=== PATIENT | male | born 1955 | race Caucasian/White ===

== ENCOUNTER → 2017-08-03 | Outpatient (CLI) | payer SELFPAY ==
[2017-08-03 10:26] LABS: Alanine Aminotransfer (ALT/SGP 27 U/L (12-78); Albumin, Blood 3.3 g/dL (3.4-5.0); Albumin/Globulin Ratio 0.8 (0.8-1.8); Alk Phos 92 U/L (40-126); Anion Gap 10 mmol/L (6-16); Aspartate Aminotrans (AST/SGOT 20 U/L (12-37); Bilirubin, Total 0.3 mg/dL (0.1-1.0); Blood Urea Nitrogen 22 mg/dL (8-24); Bun/Creatinine Ratio 18.5 (12.0-20.0); CO2, Blood 27 mmol/L (21-32); Calcium, Blood 8.7 mg/dL (8.5-10.1); Chloride, Blood 104 mmol/L (98-108); Creatinine, Blood 1.19 mg/dL (0.60-1.20); Globulin, Blood 4.2 g/dL (2.2-4.0); Glomerular Filtration Rate >60 (60-); Glucose, Blood 103 mg/dL (70-99); Potassium, Blood 3.5 mmol/L (3.5-5.5); Sodium, Blood 141 mmol/L (136-145); Total Protein, Blood 7.5 g/dL (6.4-8.2)
== END ==
LOC: LAB SHORT 10:07 → LAB EV 10:07
PROVIDERS: Family Medicine
DX: I10 Essential (primary) hypertension (principal)
CPT/HCPCS: 80053

== ENCOUNTER 2017-09-08 14:05 | Inpatient (IN) | payer SELFPAY ==
[~2017-09-08] VITALS: Ht 175.3 cm; Wt 105.0 kg
[2017-09-08] MEDS ORDERED: LISI20 PO ×2 (14:47)
[2017-09-08] MEDS ORDERED: CHLO25B PO ×2 (14:49)
[2017-09-08 19:16] LABS: Troponin I 0.174 ng/mL (0.000-0.040)
[2017-09-09 01:19] LABS: Source, Urine Clean Catch
[2017-09-09 01:22] LABS: Bilirubin, Urine Neg (Neg); Blood, Urine 1+ (Neg); Glucose Qualitative, Urine Neg (Neg); Ketones, Urine Neg (Neg); Leukocyte Esterase, Urine Neg (Neg); Nitrite, Urine Neg (Neg); Protein, Urine Neg (Neg); Specific Gravity, Urine 1.015 (1.003-1.022); Urobilinogen, Urine NORM (Normal)
[2017-09-09 01:25] LABS: Appearance, Urine Clear (Clear); Color, Urine Pale Yellow (P-Yellow)
[2017-09-09 01:31] LABS: Bacteria Not Seen /hpf; Squamous Epithelial Cells Not Seen /hpf (Few)
[2017-09-09 01:49] LABS: Eosinophils-Raw #,Urine 0; White Blood Cells Urine 0-2 /hpf (0-5); White Blood Cells, Urine 0-2 /hpf (0-5)
[2017-09-09 02:23] LABS: BASOPHILS ABSOLUTE AUTO 0.06 K/mm3 (0.00-0.23); BASOPHILS PERCENT AUTO 1 % (0-2); EOSINOPHILS ABSOLUTE AUTO 0.21 K/mm3 (0.00-0.68); EOSINOPHILS PERCENT AUTO 2 % (0-6); Hematocrit 36.1 % (37.0-53.0); Hemoglobin 11.9 g/dL (13.5-17.5); IMMATURE GRAN ABSOLUTE AUTO 0.05 K/mm3 (0.00-0.10); IMMATURE GRAN PERCENT AUTO 1 % (0-1); LYMPHOCYTES ABSOLUTE AUTO 1.16 K/mm3 (0.84-5.20); LYMPHOCYTES PERCENT AUTO 13 % (21-46); MONOCYTES ABSOLUTE AUTO 0.75 K/mm3 (0.16-1.47); MONOCYTES PERCENT AUTO 9 % (4-13); Mean Corpuscular HGB 29.5 pg (26.0-34.0); Mean Corpuscular Volume 89 fL (80-100); Mean Platelet Volume 9.3 fL (9.1-12.4); NEUTROPHILS ABSOLUTE AUTO 6.64 K/mm3 (1.96-9.15); NEUTROPHILS PERCENT AUTO 75 % (41-73); Platelet Count 292 K/mm3 (150-400); RDW Standard Deviation 45.9 fL (35.1-46.3); Red Blood Cell Count 4.04 M/mm3 (4.30-5.90); White Blood Cell Count 8.87 K/mm3 (4.00-11.30)
[2017-09-09 02:26] LABS: Troponin I 0.174 ng/mL (0.000-0.040)
[2017-09-09 02:27] LABS: Albumin, Blood 3.1 g/dL (3.4-5.0); Anion Gap 6 mmol/L (6-16); Blood Urea Nitrogen 43 mg/dL (8-24); Bun/Creatinine Ratio 22.6 (12.0-20.0); CHOL/HDL RATIO 3.6; CO2, Blood 27 mmol/L (21-32); Calcium, Blood 8.7 mg/dL (8.5-10.1); Chloride, Blood 107 mmol/L (98-108); Cholesterol 160 mg/dL (50-200); Glomerular Filtration Rate 38 (60-); Glucose, Blood 100 mg/dL (70-99); HDL Cholesterol 45 mg/dL (>39); LDL/HDL RATIO 1.9; Low Density Lipoprotein Chol 87 mg/dL (0-110); Phosphorus, Blood 4.2 mg/dL (2.5-4.9); Potassium, Blood 3.5 mmol/L (3.5-5.5); Sodium, Blood 140 mmol/L (136-145); Triglycerides 140 mg/dL (30-160); Very Low Density Lipoprot Chol 28 mg/dL (6-32)
[2017-09-10 05:29] LABS: Bun/Creatinine Ratio 20.3 (12.0-20.0); Calcium, Blood 8.7 mg/dL (8.5-10.1); Creatinine, Blood 1.53 mg/dL (0.60-1.20); Potassium, Blood 3.5 mmol/L (3.5-5.5)
[2017-09-11 11:51] LABS: Creatinine, Blood 1.47 mg/dL (0.60-1.20); Vancomycin, Trough 9.5 ug/mL (5.0-10.0)
[2017-09-11] MEDS ORDERED: LISI20 PO ×2 (15:02)
[2017-09-11] MEDS ORDERED: TRAM50 PO ×2 (15:03)
[2017-09-11] MEDS ORDERED: CIPR500 PO ×2 (15:03)
[2017-09-11] MEDS ORDERED: SACC250C PO ×2 (15:04)
[2017-09-11] MEDS ORDERED: Aspirin EC81 MG PO ×2 (15:04)
[2017-09-11] MEDS ORDERED: METO50ER PO ×2 (15:04)
[2017-09-11] MEDS ORDERED: TAMS.4ER PO ×2 (15:05)
[2017-09-11] MEDS ORDERED: ATOR20 PO ×2 (15:10)
== END 2017-09-11 16:35 | disposition home or self-care (01) | DRG 603 ==
LOC: ER 14:05 → MEDS 14:25
PROVIDERS: Internal Medicine
DX: L03.115 Cellulitis of right lower limb (principal); N17.9 Acute kidney failure, unspecified; R79.89 Other specified abnormal findings of blood chemistry; I10 Essential (primary) hypertension; R60.9 Edema, unspecified; F10.20 Alcohol dependence, uncomplicated; F17.210 Nicotine dependence, cigarettes, uncomplicated; T39.315A Adverse effect of propionic acid derivatives, initial encounter; S81.801A Unspecified open wound, right lower leg, initial encounter; B96.89 Other specified bacterial agents as the cause of diseases classified elsewhere; N40.0 Benign prostatic hyperplasia without lower urinary tract symptoms
CPT/HCPCS: 36415; 76770; 80048; 80061; 80069; 80202; 81001; 82550; 82565; 84484; 85025; 87205; 93005; 93010; 93306; 93922; 96374; 99285; J0696; J1650; J3370; J7030; J7050

== ENCOUNTER → 2017-09-08 | Outpatient (CLI) | payer OTHER ==
[~2017-09-08] MED LIST: ATOR20 PO; Aspirin EC81 MG PO; CHLO25B PO; CIPR500 PO; LISI20 PO; METO50ER PO; SACC250C PO; TAMS.4ER PO; TRAM50 PO
[2017-09-08 09:56] LABS: BASOPHILS ABSOLUTE AUTO 0.06 K/mm3 (0.00-0.23); BASOPHILS PERCENT AUTO 1 % (0-2); EOSINOPHILS ABSOLUTE AUTO 0.15 K/mm3 (0.00-0.68); EOSINOPHILS PERCENT AUTO 2 % (0-6); Hematocrit 38.8 % (37.0-53.0); Hemoglobin 13.4 g/dL (13.5-17.5); IMMATURE GRAN ABSOLUTE AUTO 0.04 K/mm3 (0.00-0.10); IMMATURE GRAN PERCENT AUTO 1 % (0-1); LYMPHOCYTES ABSOLUTE AUTO 0.95 K/mm3 (0.84-5.20); LYMPHOCYTES PERCENT AUTO 11 % (21-46); MONOCYTES ABSOLUTE AUTO 0.75 K/mm3 (0.16-1.47); MONOCYTES PERCENT AUTO 9 % (4-13); Mean Corpuscular HGB 30.5 pg (26.0-34.0); Mean Corpuscular HGB Conc 34.5 g/dL (31.5-36.5); Mean Corpuscular Volume 88 fL (80-100); Mean Platelet Volume 9.6 fL (9.1-12.4); NEUTROPHILS ABSOLUTE AUTO 6.62 K/mm3 (1.96-9.15); NEUTROPHILS PERCENT AUTO 77 % (41-73); Platelet Count 303 K/mm3 (150-400); RDW Coefficient Variation 13.9 % (11.7-14.2); White Blood Cell Count 8.57 K/mm3 (4.00-11.30)
[2017-09-08 10:01] LABS: Bun/Creatinine Ratio 20.4 (12.0-20.0); Creatinine, Blood 2.16 mg/dL (0.60-1.20); Potassium, Blood 3.7 mmol/L (3.5-5.5)
== END | disposition home or self-care (01) ==
LOC: LAB EV 09:42 → LAB SHORT 09:42
PROVIDERS: Physician Assistant Surgical
DX: R07.9 Chest pain, unspecified (principal); R22.41 Localized swelling, mass and lump, right lower limb
CPT/HCPCS: 80048; 83880; 84484; 85025; 87070; 87075; 87077; 87186; 87205

== ENCOUNTER 2017-09-15 07:50 | Day surgery (SDC) | payer SELFPAY | END 2017-09-15 23:27 | disposition home or self-care (01) | LOC: WOUND 07:50 | PROC: 0HBKXZZ Excision of Right Lower Leg Skin, External Approach (ICD-10-PCS; principal; 2017-09-15) | DX: I87.2 Venous insufficiency (chronic) (peripheral) (principal); L97.819 Non-pressure chronic ulcer of other part of right lower leg with unspecified severity; I70.25 Atherosclerosis of native arteries of other extremities with ulceration | CPT/HCPCS: G0463 ==

== ENCOUNTER 2017-10-10 00:23 | Day surgery (SDC) | payer SELFPAY | END 2017-10-10 23:10 | disposition home or self-care (01) | LOC: WOUND 00:23 | PROC: 0HBKXZZ Excision of Right Lower Leg Skin, External Approach (ICD-10-PCS; principal; 2017-10-10) | DX: I70.238 Atherosclerosis of native arteries of right leg with ulceration of other part of lower leg (principal); L97.812 Non-pressure chronic ulcer of other part of right lower leg with fat layer exposed; R60.0 Localized edema | CPT/HCPCS: 99406; G0463 ==

== ENCOUNTER 2017-10-17 14:15 | Day surgery (SDC) | payer SELFPAY | END 2017-10-17 15:04 | disposition home or self-care (01) | LOC: WOUND 14:15 | DX: Z48.00 Encounter for change or removal of nonsurgical wound dressing (principal); I70.25 Atherosclerosis of native arteries of other extremities with ulceration; I87.2 Venous insufficiency (chronic) (peripheral); R60.0 Localized edema; F17.210 Nicotine dependence, cigarettes, uncomplicated | CPT/HCPCS: G0463 ==

== ENCOUNTER 2017-11-20 07:00 | Day surgery (SDC) | payer SELFPAY | END 2017-11-20 10:47 | disposition home or self-care (01) | LOC: WOUND 07:00 | PROC: 0HBKXZZ Excision of Right Lower Leg Skin, External Approach (ICD-10-PCS; principal; 2017-11-20) | DX: Z48.00 Encounter for change or removal of nonsurgical wound dressing (principal); I87.2 Venous insufficiency (chronic) (peripheral); R60.0 Localized edema; I70.238 Atherosclerosis of native arteries of right leg with ulceration of other part of lower leg; I70.248 Atherosclerosis of native arteries of left leg with ulceration of other part of lower leg; L97.821 Non-pressure chronic ulcer of other part of left lower leg limited to breakdown of skin; L97.812 Non-pressure chronic ulcer of other part of right lower leg with fat layer exposed; F17.210 Nicotine dependence, cigarettes, uncomplicated; F10.20 Alcohol dependence, uncomplicated | CPT/HCPCS: G0463 ==

== ENCOUNTER → 2018-01-25 | Outpatient (CLI) | payer SELFPAY | END | disposition home or self-care (01) | LOC: LAB SHORT 09:25 → LAB EV 09:25 | DX: L08.9 Local infection of the skin and subcutaneous tissue, unspecified (principal) | CPT/HCPCS: 87070; 87077; 87147; 87186; 87205 ==